=== PATIENT | female | born 1995 | race African-American/Black ===

== ENCOUNTER 2019-10-11 18:53 | Observation (INO) | payer SELFPAY ==
[~2019-10-11 18:53] MED LIST: Iopamidol-370 76% 500 ML 1 ML ONE
[2019-10-11] MEDS ORDERED: Ondansetron ODT 4 MG TAB ONE (19:48)
[2019-10-11] MEDS ORDERED: Pantoprazole 40 MG VIAL ONE (20:31)
[2019-10-11 20:35] LABS: #Basophils 0.1 thou/uL (0.0-0.2); #Lymphocytes 2.3 thou/uL (1.20-3.40); #Monocytes 0.4 thou/uL (0.11-0.59); #Neutrophils 5.4 thou/uL (1.40-6.50); %Basophils 1.2 % (0.0-1.0); %Eosinophils 0.3 % (0.0-10.0); %Lymphocytes 27.9 % (21.0-51.0); %Monocytes 5.2 % (0.0-10.0); %Neutrophils 65.4 % (42.0-75.0); Hemoglobin 16.6 g/dL (12.0-16.0); Mean Corpuscular Hemoglobin 31.2 pg (27.0-31.0); Mean Corpuscular Volume 91.7 fL (78.0-98.0); Mean Platelet Volume 8.1 fL (7.4-10.4); Platelet Count 319 thou/uL (130-400); RBC Distribution Width 10.9 % (11.5-14.5); Red Blood Cell (RBC) Count 5.31 mill/uL (4.20-5.40); White Blood Cell (WBC) Count 8.3 thou/uL (4.8-10.8)
[2019-10-11 20:41] LABS: BHCG - Serum Negative (NEGATIVE); Pregs Control Background? CLEAR/WHITE (CLR/WHITE); Pregs Control Bar Appear? YES (CONTROL BAR)
[2019-10-11 20:57] LABS: ALT (SGPT) 17 U/L (8-55); AST (SGOT) 17 U/L (5-34); Albumin 4.9 g/dL (3.5-5.0); Alkaline Phosphatase 88 U/L (40-110); Anion Gap 20 mmol/L (10-20); BUN (Urea Nitrogen) 12 mg/dL (7.0-18.7); Bilirubin, Total 0.7 mg/dL (0.2-1.2); Calc. Creatinine Clearance 0 mL/min (70-130); Carbon Dioxide 29 mmol/L (22-29); Chloride 92 mmol/L (98-107); Estimated GFR-MDRD 68; Globulin 3.8 g/dL (2.4-3.5); Glucose 98 mg/dL (70-105); Lipase 69 U/L (8-78); Magnesium 2.4 mg/dL (1.6-2.6); Protein, Total 8.7 g/dL (6.0-8.3); Sodium 138 mmol/L (136-145)
[2019-10-11 21:15] LABS: Potassium 2.8 mmol/L (3.5-5.1)
[2019-10-11] MEDS ORDERED: Potassium Chloride 40 MEQ in Sodium Chloride 0.9% 250 ML 250 ML IVPB SCH (22:30)
[2019-10-11 22:32] LABS: Bilirubin Negative (Negative); Blood, Urine Negative (Negative); Clarity Clear (Clear); Glucose, Urine (Dipstick) Normal (Negative); Leukocyte 75 Leu/uL (Negative); Nitrite Negative (Negative); Protein, Urine (Dipstick) 100 mg/dL (Neg-Trace); RBC/HPF 0-3 HPF (0-3); Squamous Epithelial 0-3 HPF (0-3); Urobilinogen 3 mg/dL (Less than 2)
[2019-10-11 22:33] LABS: Bacteria/HPF 2+ HPF (None Seen)
[2019-10-11] MEDS ORDERED: Promethazine HCl 25 MG/ML VIAL ONE (22:45)
[2019-10-11] MEDS ORDERED: Magnesium 2 GM/50 ML BAG (IN WATER) ONE (22:45)
[2019-10-11] MEDS ORDERED: cefTRIAXone\\ROCEPHIN 1 GM VIAL ONE (23:26)
[2019-10-12] MEDS ORDERED: Ondansetron PF 4 MG/2 ML Vial IVP PRN ×2 (00:04→13:11)
[2019-10-12] MEDS ORDERED: hydrALAZINE 20 MG/ML VIAL SLOW IVP PRN (00:04)
[2019-10-12] MEDS ORDERED: Promethazine HCl 12.5 MG in Sodium Chloride 0.9% 50 ML IVPB PRN (00:04)
[2019-10-12] MEDS ORDERED: cloNIDine 0.1 MG TAB PO PRN (00:04)
[2019-10-12] MEDS ORDERED: Labetalol HCl 100 MG/20 ML VIAL SLOW IVP PRN (00:04)
[2019-10-12] MEDS ORDERED: Loperamide HCl 2 MG CAP PO PRN ×2 (00:05)
[2019-10-12] MEDS ORDERED: Acetaminophen 325 MG TAB PO PRN (00:05)
[2019-10-12] MEDS ORDERED: Senokot S 8.6-50 MG TAB PO PRN (00:05)
[2019-10-12] MEDS ORDERED: Guaifenesin DM 100-10/5 ML UDCUP PO PRN (00:05)
[2019-10-12] MEDS ORDERED: HYDROcodone/Acetaminophen 5/325 mg Tablet PO PRN (00:05)
[2019-10-12] MEDS ORDERED: CCU Electrolyte Replacement 1 EACH FS SCH (00:07)
--- NOTE | 2019-10-12 00:12 | PDOC.HHP ---
Hospitalist HPI - History of Present Illness Nausea, vomiting History of Present Illness: Patient is a 23 year old female with no PMH who presents to ED for 8 days of abdominal pain, nausea and vomiting. Pain is a LLQ and epigastric, constant, no sick contacts or /undercooker food intake, no risky sexual activity, denies bleeding, denies fever/chills. In ED labs significant for potassium of 2.8, serum negative, Cl low, hemoconcentrated/high rbc, UA suggestive of UTI, patient admitted for further workup and care. given rocephin. ED Course: VITAL SIGNS WedOctober 11, 2019 23:10 [place], [facility] BP: 156/92 Pulse: 89 Resp: 14 Temp: 98.8 (Oral) O2 sat: 98 on (Room Air) Time: 10/11/2019 23:10. Hospitalist ROS - Review of Systems Constitutional: denies: fever, chills, sweats, weakness, malaise, other Eyes: denies: pain, vision change, conjunctivae inflammation, eyelid inflammation, redness, other ENT: denies: ear pain, ear discharge, nose pain, nose discharge, nose congestion , mouth pain, mouth swelling, throat pain, throat swelling, other Respiratory: denies: cough, dry, shortness of breath, hemoptysis, SOB with excertion, pleuritic pain, sputum, wheezing, other Cardiovascular: denies: chest pain, palpitations, orthopnea, paroxysmal noc. dyspnea, edema, light headedness, other Gastrointestinal: reports: nausea, vomiting, abdominal pain, diarrhea. denies: constipation, melena, hematochezia, other Genitourinary: denies: dysuria, frequency, incontinence, hematuria, retention, other Musculoskeletal: denies: neck pain, shoulder pain, arm pain, back pain, hand pain, leg pain, foot pain, other Skin: denies: rash, lesions, kenneth, bruising, other Neurological: denies: weakness, numbness, incoordination, change in speech, confusion, seizures, other All other systems reviewed; all pertinent +/- noted in HPI/Subj Hospitalist History - Past Medical History Other Medical History: anxiety depression - Past Surgical History Past Surgical History: reports: no pertinent history - Family History Family History: reports: no pertinent history - Social History Alcohol: reports: None Drugs: reports: none - Exam General Appearance: NAD, awake alert Eye: PERRL, anicteric sclera ENT: normocephalic atraumatic, no oropharyngeal lesions, moist mucosa Neck: supple, symmetric, no JVD, no thyromegaly, no lymphadenopathy, no carotid bruit Heart: RRR, no murmur, no gallops, no rubs, normal peripheral pulses Respiratory: CTAB, no wheezes, no rales, no ronchi, normal chest expansion, no tachypnea, normal percussion Gastrointestinal: soft, non-distended, normal bowel sounds, no palpable masses, no hepatomegaly, no splenomegaly, no bruit Gastrointestinal - other findings: mild diffuse TTP most in LLQ Extremities: no cyanosis, no clubbing, no edema Skin: normal turgor, no lesions, no rashes Neurological: cranial nerve grossly intact, normal sensation to touch, no weakness, no focal deficits, no new deficit Musculoskeletal: normal tone, normal strength, no muscle wasting Psychiatric: normal affect, normal behavior, A&O x 3 Hospitalist Results - Labs Result Diagrams: 10/11/19 20:26 10/11/19 20: Lab results: WBC 8.3 thou/uL (4.8-10.8) 10/11/19 20: Hgb 16.6 g/dL (12.0-16.0) H 10/11/19 20: Hct 48.6 % (36.0-47.0) H 10/11/19 20: MCV 91.7 fL (78.0-98.0) 10/11/19 20: Plt Count 319 thou/uL (130-400) 10/11/19 20: Neutrophils % 65.4 % (42.0-75.0) 10/11/19 20: Sodium 138 mmol/L (136-145) 10/11/19 20: Potassium 2.8 mmol/L (3.5-5.1) L* 10/11/19 20: Chloride 92 mmol/L (98-107) L 10/11/19 20: Carbon Dioxide 29 mmol/L (22-29) 10/11/19: BUN 12 mg/dL (7.0-18.7) 10/11/19 20: Creatinine 1.03 mg/dL (0.6-1.1) 10/11/19 20: Glucose 98 mg/dL (70-105) 10/11/19: Calcium 10.0 mg/dL (7.8-10.44) 10/11/19: Total Bilirubin 0.7 mg/dL (0.2-1.2) 10/11/19 20: AST 17 U/L (5-34) 10/11/19: ALT 17 U/L (8-55) 10/11/19 20: Alkaline Phosphatase 88 U/L (40-110) 10/11/19: Serum Total Protein 8.7 g/dL (6.0-8.3) H 10/11/19: Albumin 4.9 g/dL (3.5-5.0) 10/11/19: Lipase 69 U/L (8-78) 10/11/19 20: Urine Ketones Greater than 150 mg/dL (Negative) A 10/11/19 21: Urine Blood Negative (Negative) 10/11/19 21: Urine Nitrite Negative (Negative) 10/11/19 21: Ur Leukocyte Esterase 75 Phuong/uL (Negative) A 10/11/19 21: Urine RBC 0-3 HPF (0-3) 10/11/19 21: Urine WBC 11-20 HPF (0-3) A 10/11/19 21:09 Ur Squamous Epith Cells 0-3 HPF (0-3) 10/11/19 21: Urine Bacteria 2+ HPF (None Seen) A 10/11/19 21: - EKG Interpretation EKG: sinus tachycardia, rate 105, nonspecific ST changes Hospitalist H&P A/P - Plan Plan: Patient is a 23 year old female with no PMH who presents to ED for 8 days of abdominal pain, nausea and vomiting. # nausea, vomiting, abdominal pain - ddx uti vs gastroenteritis - admit to medicine floor w/ telemetry - IVF - follow up CT results - supportive care and UTI rx as below # UTI - perhaps causing symptoms - ceftriaxone - follow up ct r/o pyelonephritis - follow cultures # hypokalemia - suspect due to poor PO intake - IVF - trend BMP daily
[2019-10-12] MEDS ORDERED: Magnesium 2 GM/50 ML 2 GM in Premix Bag 1 BAG IVPB PRN (00:13)
[2019-10-12] MEDS ORDERED: PHOS-NAK 1 PKT PACK PO PRN ×2 (00:13)
[2019-10-12] MEDS ORDERED: Potassium Chloride 40 MEQ in Premix Bag 1 BAG IVPB PRN (00:13)
[2019-10-12] MEDS ORDERED: CCU ELECTROLYTE REPLACEMENT PROTOCOL FS PRN (00:13)
[2019-10-12] MEDS ORDERED: Potassium Phosphate 15 MMOL in Sodium Chloride 0.9% 250 ML 250 ML IV PRN (00:13)
[2019-10-12] MEDS ORDERED: Potassium Phosphate 9 MMOL in Sodium Chloride 0.9% 100 ML IVPB PRN (00:13)
[2019-10-12] MEDS ORDERED: Magnesium Oxide 400 MG TAB PO PRN ×2 (00:13)
[2019-10-12] MEDS ORDERED: Potassium Chloride 20 MEQ TAB PO PRN (00:13)
[2019-10-12] MEDS ORDERED: Potassium Phosphate 12 MMOL in Sodium Chloride 0.9% 250 ML 250 ML IV PRN (00:13)
[2019-10-12] MEDS ORDERED: Potassium Chloride 40 MEQ in Sodium Chloride 0.9% 250 ML 250 ML IVPB PRN (00:13)
[2019-10-12 00:51] VITALS: BMI 17.7
[2019-10-12] MEDS: Sodium Chloride 0.9% 1,000 ML IV SCH ×4 (01:07→19:57)
[2019-10-12 04:49] LABS: #Basophils 0.1 thou/uL (0.0-0.2); #Eosinphils 0.1 thou/uL (0.0-0.7); #Lymphocytes 3.7 thou/uL (1.20-3.40); #Monocytes 0.7 thou/uL (0.11-0.59); #Neutrophils 4.2 thou/uL (1.40-6.50); %Basophils 0.9 % (0.0-1.0); %Eosinophils 0.6 % (0.0-10.0); %Lymphocytes 42.3 % (21.0-51.0); %Monocytes 7.5 % (0.0-10.0); %Neutrophils 48.7 % (42.0-75.0); Hemoglobin 14.3 g/dL (12.0-16.0); Mean Corpuscular Hemoglobin 31.8 pg (27.0-31.0); Mean Corpuscular Volume 93.4 fL (78.0-98.0); Mean Platelet Volume 8.4 fL (7.4-10.4); Platelet Count 269 thou/uL (130-400); RBC Distribution Width 10.9 % (11.5-14.5); Red Blood Cell (RBC) Count 4.51 mill/uL (4.20-5.40); White Blood Cell (WBC) Count 8.7 thou/uL (4.8-10.8)
[2019-10-12 05:16] LABS: Anion Gap 17 mmol/L (10-20); BUN (Urea Nitrogen) 9 mg/dL (7.0-18.7); Calc. Creatinine Clearance 70 mL/min (70-130); Calcium 8.7 mg/dL (7.8-10.44); Carbon Dioxide 22 mmol/L (22-29); Chloride 104 mmol/L (98-107); Estimated GFR-MDRD Greater than 90; Glucose 80 mg/dL (70-105); Magnesium 2.8 mg/dL (1.6-2.6); Potassium 3.7 mmol/L (3.5-5.1); Sodium 139 mmol/L (136-145)
[2019-10-12] MEDS: Enoxaparin Sodium 40 MG/0.4 ML SYRINGE SC SCH (08:58)
[2019-10-12] MEDS: Famotidine 20 MG TAB PO SCH ×2 (08:58→19:57)
--- NOTE | 2019-10-12 10:45 | CT ---
CT OF THE ABDOMEN AND PELVIS WITH IV CONTRAST: INDICATION: A 23-year-old female with lower left abdominal pain and epigastric abdominal pain. COMPARISON: None. FINDINGS: Lung bases are clear. There is focal fatty infiltration near the falciform ligament. Gallbladder, pancreas, adrenal glands, and spleen appear within normal limits. No hydronephrosis is evident. No free fluid or enlarged lymph nodes are evident within the abdomen. There is a normal appendix in the right lower quadrant of the abdomen. Bladder is partially decompressed. Rectum and perirectal soft tissues are unremarkable-appearing. No definite free fluid is evident within the pelvis. The partially opacified small bowel appears within normal limits. The unopacified large bowel appear s within normal limits. No definite acute osseous abnormality is demonstrated. There is leftward curvature of the spine whic h may be related to positioning. IMPRESSION: 1. No CT explanation for the patient's abdominal pain. 2. Mild fatty infiltration of the liver near the falciform ligament. POS: BH
--- NOTE | 2019-10-12 13:14 | PDOC.HOSPP ---
- Subjective Encounter Date: 10/12/19 Encounter Time: 13:00 Subjective: f/u for N/V and suspected UTI on Rocephin/Zofran/Phenergan. Still feels nauseated but sleeping after receiving Phenergan. - Objective Vital Signs & Weight: Vital Signs (12 hours) Temp Pulse Resp BP BP Pulse Ox 10/12/19 11:19 98.2 F 95 14 140/90 96 10/12/19 08:45 98.3 F 90 18 138/87 99 10/12/19 03:03 98.4 F 71 18 106/71 99 Weight Weight 97 lb 1.6 oz I&O: 10/11/19 10/12/19 10/13/19 06:59 06:59 06:59 Intake Total 620 Output Total 700 Balance -80 Result Diagrams: 10/12/19 04:27 10/12/19 04:27 Additional Labs: Laboratory Tests 10/11/19 10/11/19 10/12/19 20:26 20:27 04:27 Potassium 2.8 L* Magnesium 2.4 2.8 H Lipase 69 Serum , Qual Negative Radiology Reviewed by me: Yes (CT abd/pel - no acute process) EKG Reviewed by me: Yes (Tele - SR) Hospitalist ROS - Medication Medications: Active Medications Generic Name Dose Route Start Last Admin Trade Name Freq PRN Reason Stop Dose Admin Enoxaparin Sodium 40 mg 10/12/19 09:00 10/12/19 08:58 Lovenox SC 40 mg 0900 [facility] Administration Famotidine 20 mg 10/12/19 09:00 10/12/19 08:58 Pepcid PO Not Given BID [facility] Promethazine HCl 12.5 mg/ 50.5 mls @ 202 mls/hr 10/12/19 00:04 10/12/19 12:11 Sodium Chloride IVPB 50.5 mls Q6H PRN Administration Nausea/vomiting use second Sodium Chloride 1,000 mls @ 125 mls/hr 10/12/19 00:15 10/12/19 08:58 Normal Saline 0.9% IV 1,000 mls .Q8H [facility] Administration Sodium Chloride 10 ml 10/12/19 09:00 10/12/19 08:59 Flush - Normal Saline IVF Not Given Q12HR [facility] - Exam General Appearance: NAD, awake alert Eye: PERRL, anicteric sclera ENT: normocephalic atraumatic, no oropharyngeal lesions Neck: supple, symmetric, no JVD, no thyromegaly Heart: RRR, no murmur, no gallops, no rubs, normal peripheral pulses Heart - other findings: S1, S2 Respiratory: CTAB, no wheezes, no rales, no ronchi, normal chest expansion Gastrointestinal: soft, non-tender, non-distended, normal bowel sounds, no palpable masses Extremities: no cyanosis, no clubbing, no edema Skin: normal turgor, no lesions Neurological: cranial nerve grossly intact, no new deficit Musculoskeletal: normal tone, normal strength, no muscle wasting Psychiatric: A&O x 3, flat affect Hosp A/P (1) Nausea & vomiting Code(s): R11.2 - NAUSEA WITH VOMITING, UNSPECIFIED Status: Acute Plan: Suspected due to dehydration/UTI, continue IVF's, Zofran/Phenergan PRN, clear liquids as tolerated (2) Dehydration Code(s): E86.0 - DEHYDRATION Status: Acute Plan: Continue IVF's (3) UTI (urinary tract infection) Status: Acute Plan: Await final Ucx results, continue Rocephin IV (4) Hypokalemia Code(s): E87.6 - HYPOKALEMIA Status: Acute Plan: Improved, continue KCL supplementation, serial K+ monitoring - Plan continue antibiotics, manager social work, out of bed/ambulate, DVT proph w/SCDs Stable currently Continue IVF's Continue Zofran/Phenergan Clear liquids as tolerated KCL supplementation AM lab: BMP, CBC, Mg++ Likely home in am
[2019-10-13] MEDS ORDERED: cefTRIAXone\\ROCEPHIN 1 GM in Sodium Chloride 0.9% 100 ML IVPB SCH (00:30)
[2019-10-13] MEDS: Sodium Chloride 0.9% 1,000 ML IV SCH ×2 (04:19→09:34)
[2019-10-13 04:50] LABS: Anion Gap 15 mmol/L (10-20); BUN (Urea Nitrogen) 6 mg/dL (7.0-18.7); Calc. Creatinine Clearance 82 mL/min (70-130); Calcium 8.4 mg/dL (7.8-10.44); Carbon Dioxide 20 mmol/L (22-29); Chloride 106 mmol/L (98-107); Estimated GFR-MDRD Greater than 90; Glucose 71 mg/dL (70-105); Potassium 3.1 mmol/L (3.5-5.1); Sodium 138 mmol/L (136-145)
[2019-10-13 05:03] LABS: Band 1 % (5-11); Eosinophils 4 % (0-10); Hemoglobin 11.9 g/dL (12.0-16.0); Lymphocytes 53 % (21-51); MDiff Complete? YES; Mean Corpuscular HGB CONC 33.4 g/dL (32.0-36.0); Mean Corpuscular Hemoglobin 31.5 pg (27.0-31.0); Mean Corpuscular Volume 94.4 fL (78.0-98.0); Mean Platelet Volume 8.4 fL (7.4-10.4); Monocytes 3 % (0-10); Neutrophil 39 % (42-75); Platelet Count 213 thou/uL (130-400); Platelet Morphology Comment Appears Adequate; RBC Distribution Width 10.8 % (11.5-14.5); RBC Morphology Normal; Red Blood Cell (RBC) Count 3.76 mill/uL (4.20-5.40); White Blood Cell (WBC) Count 7.8 thou/uL (4.8-10.8)
[2019-10-13] MEDS: Enoxaparin Sodium 40 MG/0.4 ML SYRINGE SC SCH (09:34)
[2019-10-13] MEDS: Famotidine 20 MG TAB PO SCH (09:34)
[2019-10-13 12:46] VITALS: BP 102/65; TEMP 98.4
--- NOTE | 2019-10-14 03:13 | DIS ---
DATE OF ADMISSION: 10/12/2019 DATE OF DISCHARGE: 10/13/2019 DISCHARGE DIAGNOSES: 1. Nausea and vomiting, likely secondary to dehydration, resolved. 2. Dehydration resolved. 3. Urinary tract infection suspected without dominant organism identified. 4. Hypokalemia. CONSULTATIONS: None. PERTINENT LABORATORY AND X-RAY FINDINGS: Potassium ranged between 2.8 to 3.7. Magnesium ranged between 2.0 to 2.8. Serum beta-hCG negative. Lipase 69. CBC within normal limits. Urine culture dated 10/12/2019 showed no growth at [address] of the abdomen and pelvis dated 10/11/2019 showed no acute intraabdominal process. HOSPITAL COURSE: The patient was observed after presenting with persistent nausea and vomiting with associated dehydration. The patient was also noted with abdominal pain, initiated on IV Rocephin after concern for urinary tract infection. Urine culture showed no growth as stated previously and the patient continued to receive IV fluids and antiemetics. The patient clinically improved in approximately 24 hours, advancing to regular diet without difficulty. The patient received potassium supplementation and continuation of IV fluids for the remainder of her hospital course, stabilizing prior to discharge. I have examined the patient at the time of discharge and discussed followup instructions. The patient verbalized understanding and agreement, ready for discharge, 10/13/2019. DISCHARGE MEDICATIONS: None. FOLLOWUP: The patient may follow up with local [facility] as needed. CONDITION ON DISCHARGE: Stable. ACTIVITY: Ad-karime. DIET: Regular. CODE STATUS: Full. DISPOSITION: Home, 10/13/2019. Job ID: [id number]
== END 2019-10-13 12:44 | disposition home or self-care (01) ==
LOC: ERS 18:53 → 2NO 10-12 00:16
PROVIDERS: ADMIT Internal Medicine; ATTEND Family Medicine
DX: N39.0 Urinary tract infection, site not specified (principal); E86.0 Dehydration; E87.6 Hypokalemia; R11.2 Nausea with vomiting, unspecified
CPT/HCPCS: 36415; 74177; 80048; 80053; 81003; 81015; 83690; 83735; 84703; 85025; 87086; 93005; 96361; 96365; 96366; 96367; 96372; 96375; 96376; C9113; G0378; J0696; J1650; J2405; J2550; J3475; J3480; J3490; J7050; Q0162; Q9967